=== PATIENT | male | born 1950 | race Caucasian/White ===

== ENCOUNTER → 2016-11-15 | Outpatient (CLI) | payer MEDICARE, OTHER | END | disposition home or self-care (01) | LOC: CVU 13:59 | PROVIDERS: ATTEND Internal Medicine Cardiovascular Disease | DX: Z01.810 Encounter for preprocedural cardiovascular examination (principal); I86.8 Varicose veins of other specified sites; I87.2 Venous insufficiency (chronic) (peripheral); I10 Essential (primary) hypertension | CPT/HCPCS: 93970 ==

== ENCOUNTER → 2016-11-18 | Outpatient (CLI) | payer MEDICARE, OTHER ==
[~2016-11-18] MED LIST: REGADENOSON 0.4 MG/5 ML SYRINGE ONE
== END | disposition home or self-care (01) ==
LOC: CFH 11:55
PROVIDERS: ATTEND Internal Medicine Cardiovascular Disease
DX: Z01.810 Encounter for preprocedural cardiovascular examination (principal); R94.31 Abnormal electrocardiogram [ECG] [EKG]; I87.2 Venous insufficiency (chronic) (peripheral); I10 Essential (primary) hypertension; Z86.73 Personal history of transient ischemic attack (TIA), and cerebral infarction without residual deficits
CPT/HCPCS: 78452; 93017; A9502; J2785

== ENCOUNTER 2017-07-15 11:04 | Day surgery (SDC) | payer MEDICARE, OTHER ==
[~2017-07-15] VITALS: Ht 175.3 cm; Wt 90.9 kg
[2017-07-15 11:59] VITALS: BP 136/71
[2017-07-15] MEDS ORDERED: LIDOCAINE/PF 1%-EPI 1:200K, 30 ML ONE (12:53)
[2017-07-15] MEDS ORDERED: SODIUM BICARBONATE 1 MEQ/ML, 50ML VIAL ONE (12:54)
[2017-07-15] MEDS ORDERED: LIDOCAINE 2%, 20ML ONE (12:54)
== END 2017-07-15 14:10 | disposition home or self-care (01) ==
LOC: CACL 11:04
PROVIDERS: ATTEND Internal Medicine Cardiovascular Disease
DX: I87.2 Venous insufficiency (chronic) (peripheral) (principal); I83.891 Varicose veins of right lower extremity with other complications; I10 Essential (primary) hypertension; E78.5 Hyperlipidemia, unspecified; E11.9 Type 2 diabetes mellitus without complications; Z88.8 Allergy status to other drugs, medicaments and biological substances
CPT/HCPCS: 36475; C1894; J3490

== ENCOUNTER → 2017-07-17 | Outpatient (CLI) | payer MEDICARE, OTHER | END | disposition home or self-care (01) | LOC: CVU 10:34 | PROVIDERS: ATTEND Internal Medicine Cardiovascular Disease | DX: I87.2 Venous insufficiency (chronic) (peripheral) (principal) | CPT/HCPCS: 93971 ==

== ENCOUNTER → 2017-09-15 | Outpatient (CLI) | payer MEDICARE, OTHER ==
[~2017-09-15] MED LIST changes: +ACET-1600 PO; +ALFU10TA PO; +ALLO300T PO; +CALC60OI3 TP; +CALCIUM CIT PO; +CLOP75TA PO; +COLC0.6T37 PO; +MULT-730 PO; +OMEG1CAP23 PO; +PANT40TA5 PO; -REGADENOSON 0.4 MG/5 ML SYRINGE ONE; +VITA1CAP PO; +VITAMIN D3 PO; +ZINC PO
[2017-09-15 10:24] LABS: MICROSCOPIC NOT IND
[2017-09-15 10:31] LABS: ALANINE AMINOTRANSFERASE 35 U/L (12-78); ANION GAP 5 mmol/L (5-15); CALCIUM 8.8 mg/dL (8.5-10.1); CHLORIDE 107 mmol/L (98-107); CREATININE 1.05 mg/dL (0.7-1.3)
[2017-09-15 10:33] LABS: ALKALINE PHOSPHATASE 102 U/L (45-117); BILIRUBIN,TOTAL 0.6 mg/dL (0.2-1.0); TOTAL PROTEIN 7.4 g/dL (6.4-8.2)
== END ==
LOC: STAR 09:15
PROVIDERS: ATTEND Urology
DX: N40.0 Benign prostatic hyperplasia without lower urinary tract symptoms (principal)
CPT/HCPCS: 36415; 80053; 81003; 87086; 93005

== ENCOUNTER 2017-09-30 12:42 | Day surgery (SDC) | payer MEDICARE, OTHER ==
[~2017-09-30] VITALS: Ht 175.3 cm; Wt 95.9 kg
[~2017-09-30 12:42] MED LIST changes: +LIDOCAINE/PF 2%-EPI 1:200K, 10ML ONE; +SODIUM BICARBONATE 1 MEQ/ML, 50ML VIAL ONE
[2017-09-30 13:05] VITALS: BP 144/78
[2017-09-30] MEDS ORDERED: LIDOCAINE 2%, 20ML ONE (13:12)
== END 2017-09-30 16:00 ==
LOC: CACL 12:42
PROVIDERS: ATTEND Internal Medicine Cardiovascular Disease
DX: I87.2 Venous insufficiency (chronic) (peripheral) (principal); I10 Essential (primary) hypertension; N40.1 Benign prostatic hyperplasia with lower urinary tract symptoms; N13.8 Other obstructive and reflux uropathy; Z79.899 Other long term (current) drug therapy
CPT/HCPCS: 36482; C1894; J3490

== ENCOUNTER → 2017-10-02 | Outpatient (CLI) | payer MEDICARE, OTHER ==
[~2017-10-02] MED LIST changes: -LIDOCAINE/PF 2%-EPI 1:200K, 10ML ONE; -SODIUM BICARBONATE 1 MEQ/ML, 50ML VIAL ONE
== END | disposition home or self-care (01) ==
LOC: CVU 12:33
PROVIDERS: ATTEND Internal Medicine Cardiovascular Disease
DX: I87.2 Venous insufficiency (chronic) (peripheral) (principal)
CPT/HCPCS: 93971

== ENCOUNTER 2018-07-06 07:05 | Emergency (ER) | payer MEDICARE, OTHER ==
[~2018-07-06] VITALS: Ht 170.2 cm; Wt 109.8 kg
[2018-07-06 07:56] LABS: MICROSCOPIC AUTO
[2018-07-06 07:57] LABS: CULTURE INDICATED? YES
[2018-07-06] MEDS ORDERED: PHENAZOPYRIDINE 200 MG TABLET PO ONE (08:00)
[2018-07-06] MEDS ORDERED: PHENAZOPYRIDINE 200 MG TABLET ONE (08:03)
[2018-07-06 08:49] VITALS: BP 119/71
== END 2018-07-06 08:51 | disposition home or self-care (01) ==
LOC: ED 08:45
DX: N30.00 Acute cystitis without hematuria (principal); I10 Essential (primary) hypertension; Z87.891 Personal history of nicotine dependence
CPT/HCPCS: 81001; 87077; 87086; 87186; 99283

== ENCOUNTER 2018-08-16 12:01 | Inpatient (IN) | payer MEDICARE, OTHER ==
[~2018-08-16] VITALS: Ht 170.2 cm; Wt 112.2 kg
[2018-08-16] MEDS ORDERED: SODIUM CHLORIDE 0.9% 1,000 ML IV ONE (12:32)
[2018-08-16] MEDS ORDERED: SODIUM CHLORIDE 0.9% 1,000ML IVBOLUS ONE ×2 (13:00→14:00)
[2018-08-16] MEDS ORDERED: SODIUM CHLORIDE FLUSH 10ML SYR IVF ONE (13:00)
[2018-08-16 13:01] LABS: MEAN CORPUSCULAR HEMOGLOBIN 30.2 pg (27.5-34.5); MEAN CORPUSCULAR HGB CONC 33.4 g/dL (33.2-36.2); MEAN CORPUSCULAR VOLUME 90.5 fL (81-97); MEAN PLATELET VOLUME 7.9 fL (7.4-10.4); PLATELET COUNT 206 x10^3/uL (130-400); RED BLOOD COUNT 5.13 x10^6/uL (4.38-5.82); RED CELL DISTRIBUTION WIDTH 14.1 % (9.4-14.8)
[2018-08-16 13:06] LABS: ALANINE AMINOTRANSFERASE 24 U/L (12-78); ALBUMIN 3.5 g/dL (3.4-5.0); ANION GAP 13 mmol/L (5-15); CHLORIDE 99 mmol/L (98-107); CREATININE 1.12 mg/dL (0.7-1.3)
[2018-08-16 13:08] LABS: ALKALINE PHOSPHATASE 87 U/L (45-117); BILIRUBIN,TOTAL 1.8 mg/dL (0.2-1.0); TOTAL PROTEIN 7.5 g/dL (6.4-8.2)
[2018-08-16 13:19] LABS: MD YES
[2018-08-16 13:21] LABS: BAND#(MANUAL) 0.97 x10^3/uL; BANDS%(MANUAL) 7 % (0-7); LYMPH#(MANUAL) 0.69 x10^3/uL (1-3.4); LYMPHS% (MANUAL) 5 % (22-44); MONOS#(MANUAL) 0.97 x10^3/uL (0.3-2.7); MONOS% (MANUAL) 7 % (2-9); SEG#(MANUAL) 11.18 x10^3/uL (1.8-6.8); SEGS% (MANUAL) 81 % (42-75)
[2018-08-16 13:22] LABS: <PLATELET ESTIMATE> ADEQUATE; <PLT MORPHOLOGY> NORMAL PLT MORPH; <RBC MORPHOLOGY> NORMAL
[2018-08-16] MEDS ORDERED: CEFTRIAXONE PMX 1GM/50ML 50 ML IVPB ONE (14:00)
[2018-08-16] MEDS ORDERED: AZITHROMYCIN 500 MG in SODIUM CHLORIDE 0.9% 250 ML IVPB ONE (14:00)
[2018-08-16] MEDS ORDERED: CEFTRIAXONE PMX 1GM/50ML 50 ML ONE (14:27)
[2018-08-16] MEDS ORDERED: ONDANSETRON 2MG/ML, 2ML IVPush PRN (15:00)
[2018-08-16] MEDS ORDERED: ACETAMINOPHEN 325 MG TABLET PO PRN (15:00)
[2018-08-16] MEDS ORDERED: LABETALOL 5MG/ML, 20ML IVPush PRN (15:00)
--- NOTE | 2018-08-16 15:34 | NUR ---
PT RESTING COMFORTABLY ON GURNEY, NAD NOTED. UA COLLECTED AND SENT TO LAB. 2ND L NS INFUSING. ZITHROMAX ABX STARTED AT THIS TIME
[2018-08-16] MEDS: CEFTRIAXONE PMX 1GM/50ML 50 ML IV SCH (16:29)
[2018-08-16] MEDS: AZITHROMYCIN 500 MG in SODIUM CHLORIDE 0.9% 250 ML IV SCH (16:29)
--- NOTE | 2018-08-16 16:57 | NUR ---
PT ASSISTED TO USE BSC TO VOID. UNABLE TO OBTAIN ENOUGH STOOL SAMPLE TO SEND TO LAB
[2018-08-16 17:00] LABS: CULTURE INDICATED? YES; MICROSCOPIC INDICATED
[2018-08-16 19:18] LABS: RAPID INFLUENZA A Negative (Negative); RAPID INFLUENZA B Negative (Negative)
[2018-08-16 19:20] VITALS: BP 115/57
[2018-08-16] MEDS: SODIUM CHLORIDE 0.9% 1,000 ML IV SCH (19:38)
[2018-08-16] MEDS: GUAIFENESIN 200 MG TABLET PO SCH ×2 (19:39→21:00)
[2018-08-16] MEDS: ENOXAPARIN 40 MG/0.4 ML SQ SCH (19:49)
[2018-08-16 20:03] VITALS: BP 128/74
[2018-08-16 21:17] LABS: CLOSTRIDIUM DIFFICILE ANTIGEN NEGATIVE; CLOSTRIDIUM DIFFICILE TOXIN NEGATIVE (Negative)
[2018-08-16] MEDS ORDERED: COLCHICINE 0.6 MG TABLET PO PRN (21:30)
[2018-08-17 01:48] VITALS: BP 119/66
[2018-08-17] MEDS: SODIUM CHLORIDE 0.9% 1,000 ML IV SCH ×3 (03:32→22:08)
[2018-08-17 05:26] LABS: BASOPHILS # (AUTO) 0.01 x10^3/uL (0-0.1); BASOPHILS % (AUTO) 0 % (0-1); EOSINOPHILS # (AUTO) 0.05 x10^3/uL (0-0.4); EOSINOPHILS % (AUTO) 0 % (1-7); LYMPHOCYTES # (AUTO) 0.86 x10^3/uL (1-3.4); LYMPHOCYTES % (AUTO) 7 % (22-44); MD NO; MEAN CORPUSCULAR HEMOGLOBIN 30.5 pg (27.5-34.5); MEAN CORPUSCULAR HGB CONC 33.6 g/dL (33.2-36.2); MEAN PLATELET VOLUME 7.8 fL (7.4-10.4); MONOCYTES # (AUTO) 1.01 x10^3/uL (0.2-0.8); MONOCYTES % (AUTO) 8 % (2-9); NEUTROPHILS # (AUTO) 10.15 x10^3/uL (1.8-6.8); NEUTROPHILS % (AUTO) 84 % (42-75); PLATELET COUNT 158 x10^3/uL (130-400); RED BLOOD COUNT 4.26 x10^6/uL (4.38-5.82); RED CELL DISTRIBUTION WIDTH 13.8 % (9.4-14.8)
[2018-08-17 05:28] LABS: ALBUMIN 2.7 g/dL (3.4-5.0); ANION GAP 7 mmol/L (5-15); CALCIUM 8.4 mg/dL (8.5-10.1); CHLORIDE 105 mmol/L (98-107)
[2018-08-17 05:31] LABS: ALANINE AMINOTRANSFERASE 22 U/L (12-78); ALKALINE PHOSPHATASE 76 U/L (45-117); BILIRUBIN,TOTAL 0.9 mg/dL (0.2-1.0); CREATININE 0.79 mg/dL (0.7-1.3)
[2018-08-17 06:19] VITALS: BP 130/69
[2018-08-17] MEDS: GUAIFENESIN 200 MG TABLET PO SCH ×4 (06:19→21:20)
[2018-08-17] MEDS: MULTIVITS,STRESS FORMULA 1 TABLET PO SCH (08:43)
[2018-08-17] MEDS: OMEGA-3/FISH OIL CAPSULE PO SCH (08:43)
[2018-08-17] MEDS: MULTIVITAMINS WITH IRON TABLET PO SCH (08:43)
[2018-08-17] MEDS: CLOPIDOGREL 75 MG TABLET PO SCH (08:43)
[2018-08-17] MEDS: PANTOPROZOLE 40MG TABLET PO SCH (08:44)
[2018-08-17] MEDS: ALLOPURINOL 300 MG TABLET PO SCH (08:44)
[2018-08-17 13:32] VITALS: BP 132/66
[2018-08-17] MEDS: CEFTRIAXONE PMX 1GM/50ML 50 ML IV SCH (14:16)
[2018-08-17] MEDS: AZITHROMYCIN 500 MG in SODIUM CHLORIDE 0.9% 250 ML IV SCH (15:17)
[2018-08-17] MEDS: ENOXAPARIN 40 MG/0.4 ML SQ SCH (15:23)
[2018-08-17 19:37] VITALS: BP 132/70
[2018-08-18 03:26] VITALS: BP 143/65
[2018-08-18] MEDS: SODIUM CHLORIDE 0.9% 1,000 ML IV SCH (05:47)
[2018-08-18] MEDS: GUAIFENESIN 200 MG TABLET PO SCH (05:47)
[2018-08-18 06:11] LABS: BASOPHILS # (AUTO) 0.02 x10^3/uL (0-0.1); BASOPHILS % (AUTO) 0 % (0-1); EOSINOPHILS # (AUTO) 0.18 x10^3/uL (0-0.4); EOSINOPHILS % (AUTO) 2 % (1-7); LYMPHOCYTES # (AUTO) 0.88 x10^3/uL (1-3.4); LYMPHOCYTES % (AUTO) 11 % (22-44); MD NO; MEAN CORPUSCULAR HGB CONC 34.4 g/dL (33.2-36.2); MEAN CORPUSCULAR VOLUME 90.2 fL (81-97); MEAN PLATELET VOLUME 7.8 fL (7.4-10.4); MONOCYTES # (AUTO) 0.78 x10^3/uL (0.2-0.8); MONOCYTES % (AUTO) 10 % (2-9); NEUTROPHILS # (AUTO) 6.23 x10^3/uL (1.8-6.8); NEUTROPHILS % (AUTO) 77 % (42-75); PLATELET COUNT 211 x10^3/uL (130-400); RED BLOOD COUNT 4.53 x10^6/uL (4.38-5.82); RED CELL DISTRIBUTION WIDTH 13.6 % (9.4-14.8)
[2018-08-18 06:22] LABS: ALBUMIN 2.9 g/dL (3.4-5.0); ANION GAP 9 mmol/L (5-15); CALCIUM 8.4 mg/dL (8.5-10.1); CHLORIDE 106 mmol/L (98-107)
[2018-08-18 06:28] LABS: ALANINE AMINOTRANSFERASE 109 U/L (12-78); ALKALINE PHOSPHATASE 107 U/L (45-117); CREATININE 0.82 mg/dL (0.7-1.3); TOTAL PROTEIN 6.7 g/dL (6.4-8.2)
[2018-08-18 07:16] VITALS: BP 156/75
[2018-08-18] MEDS ORDERED: POTASSIUM CHLORIDE 20 MEQ TAB.ER.PRT PO SCH (08:00)
[2018-08-18] MEDS: MULTIVITAMINS WITH IRON TABLET PO SCH (08:17)
[2018-08-18] MEDS: CLOPIDOGREL 75 MG TABLET PO SCH (08:17)
[2018-08-18] MEDS: PANTOPROZOLE 40MG TABLET PO SCH (08:17)
[2018-08-18] MEDS: OMEGA-3/FISH OIL CAPSULE PO SCH (08:17)
[2018-08-18] MEDS: ALLOPURINOL 300 MG TABLET PO SCH (08:17)
[2018-08-18] MEDS: MULTIVITS,STRESS FORMULA 1 TABLET PO SCH (08:47)
[2018-08-18] MEDS ORDERED: AZITHROMYCIN 500 MG TABLET PO SCH (09:00)
[2018-08-18] MEDS ORDERED: AMOXICILLIN/CLAV 875-125MG TABLET PO SCH (09:00)
[2018-08-18] MEDS ORDERED: POTA20TA6 PO (10:18)
[2018-08-18] MEDS ORDERED: AZIT500T5 PO ×2 (10:18)
[2018-08-18] MEDS ORDERED: GUAI200T3 PO (10:18)
[2018-08-18] MEDS ORDERED: AMOX1TAB12 PO (10:18)
[2018-08-18] MEDS ORDERED: DOXY100T PO (10:25)
== END 2018-08-18 11:48 | disposition home or self-care (01) | DRG 871 ==
LOC: ED 12:38 → EDIP 16:24 → 4WST 18:10 → DCLOUNGE 08-18 11:37
PROVIDERS: ADMIT Internal Medicine; ATTEND Internal Medicine
DX: A41.9 Sepsis, unspecified organism (principal); J96.01 Acute respiratory failure with hypoxia; J15.9 Unspecified bacterial pneumonia; E87.1 Hypo-osmolality and hyponatremia; E66.9 Obesity, unspecified; I10 Essential (primary) hypertension; K21.9 Gastro-esophageal reflux disease without esophagitis; Z86.73 Personal history of transient ischemic attack (TIA), and cerebral infarction without residual deficits; Z87.440 Personal history of urinary (tract) infections; Z96.651 Presence of right artificial knee joint; M10.9 Gout, unspecified; Z68.38 Body mass index [BMI] 38.0-38.9, adult
CPT/HCPCS: 36415; 71045; 80053; 80307; 81001; 83605; 84145; 85025; 87040; 87070; 87077; 87086; 87186; 87205; 87324; 87400; 89055; 93005; 96365; 99285; G0378; J0456; J0696; J1650; J7030; J7050

== ENCOUNTER 2019-01-04 17:16 | Emergency (ER) | payer MEDICARE, OTHER ==
[~2019-01-04] VITALS: Ht 170.2 cm; Wt 113.9 kg
[~2019-01-04 17:16] MED LIST changes: +AMOX1TAB12 PO; +AZIT500T5 PO; +DOXY100T PO; +GUAI200T3 PO; +POTA20TA6 PO
[2019-01-04 17:26] VITALS: BP 159/83
== END 2019-01-04 17:57 | disposition home or self-care (01) ==
LOC: ED 17:48
DX: J06.9 Acute upper respiratory infection, unspecified (principal); I10 Essential (primary) hypertension; E78.5 Hyperlipidemia, unspecified; Z86.73 Personal history of transient ischemic attack (TIA), and cerebral infarction without residual deficits
CPT/HCPCS: 71046; 99283

== ENCOUNTER → 2019-12-10 | Outpatient (CLI) | payer MEDICARE, OTHER ==
[~2019-12-10] MED LIST changes: +AZIT500T10 PO; -AZIT500T5 PO; -GUAI200T3 PO; +GUAI200T37 PO
== END | disposition home or self-care (01) ==
LOC: CFH 09:07
PROVIDERS: ATTEND Internal Medicine
DX: R91.8 Other nonspecific abnormal finding of lung field (principal); I70.0 Atherosclerosis of aorta; K44.9 Diaphragmatic hernia without obstruction or gangrene; K76.0 Fatty (change of) liver, not elsewhere classified; M47.814 Spondylosis without myelopathy or radiculopathy, thoracic region
CPT/HCPCS: 71250

== ENCOUNTER → 2020-04-10 | Outpatient (CLI) | payer MEDICARE, OTHER ==
[~2020-04-10] MED LIST changes: -PANT40TA5 PO; +PANT40TA6 PO
== END | disposition home or self-care (01) ==
LOC: STAR 09:53
PROVIDERS: ATTEND Anesthesiology
DX: Z01.812 Encounter for preprocedural laboratory examination (principal); Z20.828 Contact with and (suspected) exposure to other viral communicable diseases
CPT/HCPCS: 36415; 87635

== ENCOUNTER 2020-04-14 07:14 | Day surgery (SDC) | payer MEDICARE, OTHER ==
[~2020-04-14] VITALS: Ht 172.7 cm; Wt 128.2 kg
[2020-04-14] MEDS ORDERED: ROSU5TAB12 PO (07:45)
[2020-04-14] MEDS ORDERED: LISI10TA2 PO (07:45)
[2020-04-14] MEDS ORDERED: AMLO5TAB10 PO (07:45)
[2020-04-14] MEDS ORDERED: LOSA50TA14 PO (07:45)
[2020-04-14] MEDS ORDERED: LACTATED RINGERS 1,000 ML IV SCH (07:55)
[2020-04-14 07:56] VITALS: BP 148/83
[2020-04-14] MEDS ORDERED: CHLORHEXIDINE 15 ML UDC ONE (08:12)
[2020-04-14] MEDS ORDERED: CHLORHEXIDINE 15 ML UDC MM ONE (08:30)
[2020-04-14 08:40] LABS: ALANINE AMINOTRANSFERASE 114 U/L (12-78); ALBUMIN 4.4 g/dL (3.4-5.0); ANION GAP 9 mmol/L (5-15); CALCIUM 9.2 mg/dL (8.5-10.1); CHLORIDE 108 mmol/L (98-107); CREATININE 1.15 mg/dL (0.7-1.3)
[2020-04-14 08:42] LABS: ALKALINE PHOSPHATASE 78 U/L (45-117); BILIRUBIN,TOTAL 1.2 mg/dL (0.2-1.0); TOTAL PROTEIN 7.7 g/dL (6.4-8.2)
[2020-04-14] MEDS ORDERED: LIDOCAINE-MPF 2% ,5ML ONE (08:54)
[2020-04-14] MEDS ORDERED: MIDAZOLAM 1 MG/ML, 2ML ONE (08:54)
[2020-04-14] MEDS ORDERED: GLYCOPYRROLATE 0.2MG/1ML, 5ML ONE (08:54)
[2020-04-14] MEDS ORDERED: PROPOFOL 10 MG/ML, 20ML ONE (08:54)
[2020-04-14] MEDS ORDERED: DEXAMETHASONE 4 MG/ML, 1ML ONE (08:54)
[2020-04-14] MEDS ORDERED: FENTANYL PF 100 MCG/2ML IV PRN (09:00)
[2020-04-14] MEDS ORDERED: MIDAZOLAM 1 MG/ML, 2ML IV PRN (09:00)
[2020-04-14] MEDS ORDERED: DIAZEPAM 5 MG/ML, 2ML IVPush PRN (09:00)
[2020-04-14] MEDS ORDERED: EPHEDRINE 50 MG/ML, 1ML IM PRN (09:00)
[2020-04-14] MEDS ORDERED: OXYcodone 5 MG/5 ML ORAL.SOL UDC PO PRN (09:00)
[2020-04-14] MEDS ORDERED: HYDROcodone/APAP 7.5-325MG/15ML UDC PO PRN (09:00)
[2020-04-14] MEDS ORDERED: METHOCARBAMOL 1,000 MG in DEXTROSE 5% 100 ML IV PRN (09:00)
[2020-04-14] MEDS ORDERED: EPHEDRINE 50 MG/ML, 1ML IVPush PRN (09:00)
[2020-04-14] MEDS ORDERED: LORazepam 2 MG/ML, 1ML IVPush PRN (09:00)
[2020-04-14] MEDS ORDERED: LABETALOL 5MG/ML, 20ML IV PRN (09:00)
[2020-04-14] MEDS ORDERED: ALBUTEROL/IPRATROPIUM 2.5MG/0.5MG, 3 ML NPPB PRN (09:00)
[2020-04-14] MEDS ORDERED: METOCLOPRAMIDE 5 MG/ML, 2ML IVPush PRN (09:00)
[2020-04-14] MEDS ORDERED: LABETALOL 5MG/ML, 20ML ONE (09:15)
== END 2020-04-14 11:00 | disposition home or self-care (01) ==
LOC: OUT 07:14
PROVIDERS: ATTEND Internal Medicine Gastroenterology
DX: Z12.11 Encounter for screening for malignant neoplasm of colon (principal); K57.30 Diverticulosis of large intestine without perforation or abscess without bleeding; I10 Essential (primary) hypertension; I25.10 Atherosclerotic heart disease of native coronary artery without angina pectoris; G47.30 Sleep apnea, unspecified; E66.01 Morbid (severe) obesity due to excess calories; K21.9 Gastro-esophageal reflux disease without esophagitis; F12.90 Cannabis use, unspecified, uncomplicated; E78.5 Hyperlipidemia, unspecified; Z68.41 Body mass index [BMI] 40.0-44.9, adult; Z88.8 Allergy status to other drugs, medicaments and biological substances; Z87.01 Personal history of pneumonia (recurrent); Z98.890 Other specified postprocedural states; Z96.651 Presence of right artificial knee joint; Z79.899 Other long term (current) drug therapy; Z87.891 Personal history of nicotine dependence; Z72.89 Other problems related to lifestyle; Z86.010 Personal history of colon polyps; Z88.2 Allergy status to sulfonamides; Z86.73 Personal history of transient ischemic attack (TIA), and cerebral infarction without residual deficits
CPT/HCPCS: 36415; 80053; 93005; G0105; J1100; J2250; J2704; J7120

== ENCOUNTER → 2020-10-16 | Outpatient (CLI) | payer MEDICARE, OTHER ==
[~2020-10-16] MED LIST changes: +AMLO-210 PO; +LISI10TA19 PO; +LOSA50TA14 PO; +ROSU5TAB12 PO
== END | disposition home or self-care (01) ==
LOC: CVU 07:51
PROVIDERS: ATTEND Internal Medicine Cardiovascular Disease
DX: I35.8 Other nonrheumatic aortic valve disorders (principal); I10 Essential (primary) hypertension
CPT/HCPCS: 93306; 93356

== ENCOUNTER → 2021-03-08 | Outpatient (CLI) | payer MEDICARE, OTHER | END | disposition home or self-care (01) | LOC: CFH 09:13 | PROVIDERS: ATTEND Internal Medicine | DX: R91.8 Other nonspecific abnormal finding of lung field (principal); M40.294 Other kyphosis, thoracic region; R05 Cough; R59.0 Localized enlarged lymph nodes | CPT/HCPCS: 71250 ==